=== PATIENT | female | born 1980 | race Caucasian/White ===

== ENCOUNTER → 2017-07-07 | Outpatient (CLI) | payer BC ==
[~2017-07-07] MED LIST: ATV/1 PO; BCPILLS PO; CETI10TA84 PO; CHOL100010 PO; HYOS1TAB PO; [UNRECOGNIZED DRUG - CODE] PO
== END | disposition home or self-care (01) ==
LOC: C.PAPS 09:52
PROVIDERS: ATTEND Physician Assistant
DX: Z01.419 Encounter for gynecological examination (general) (routine) without abnormal findings (principal)

== ENCOUNTER → 2017-10-16 | Outpatient (CLI) | payer BC, OTHER ==
--- NOTE | 2017-10-16 09:08 | DIAGNOSTIC IMAGING REPORT ---
ABDOMINAL ULTRASOUND, RIGHT UPPER QUADRANT HISTORY: Liver hemangioma1 year follow-up. COMPARISON: Abdominal ultrasound 09/07/2016. FINDINGS: Pancreas: The pancreas demonstrates a normal echotexture. Liver: A 16 x 15 x 14 mm hyperechoic focus within the liver is again noted. This is stable to slightly increased in size compared the prior studies. Gallbladder: No gallbladder wall thickening. No gallstones. CBD: 3 mm. Right kidney: No hydronephrosis. IMPRESSION: Stable to slight increase in size of the 16 x 15 x 14 mm hyperechoic focus within the liver. This likely represents a hemangioma. Electronically signed by: Kendall Griffin M.D. 10/16/2017 9:06 AM Dictated Date/Time: 10/16/2017 8:52 AM
== END | disposition home or self-care (01) ==
LOC: C.ULTRBC 07:59
PROVIDERS: ATTEND Internal Medicine Geriatric Medicine
DX: D18.03 Hemangioma of intra-abdominal structures (principal)

== ENCOUNTER → 2018-02-08 | Outpatient (CLI) | payer OTHER ==
--- NOTE | 2018-02-08 15:51 | DIAGNOSTIC IMAGING REPORT ---
CERVICAL WITHOUT CONTRAST CLINICAL HISTORY: 37 years-old Female presenting with M54.12 Cervical radiculopathy, neck pain radiating into the left shoulder for 6 weeks, left arm numbness intermittently, no history of trauma. TECHNIQUE: Multisequence, multiplanar MR imaging of the cervical spine was performed without the use of intravenous contrast. IV contrast: None. COMPARISON: None. FINDINGS: Localizer images: Unremarkable. Normal cervical lordosis. T1 hyperintense, T2 hyperintense lesion along the superior of C6 eccentrically along the right, possibly fat poor hemangioma or other benign etiology. Vertebral bodies otherwise maintain normal height, alignment, and bone marrow signal intensity. Mild disc desiccation without height loss at C3-4. No significant disc osteophyte complexes. Intervertebral discs otherwise preserved. No other significant degenerative change. No neural foraminal or spinal canal narrowing. Cervical spinal cord maintains normal morphology and signal intensity. Craniocervical junction normal. No epidural collection. No paraspinal muscular edema. IMPRESSION: Essentially normal cervical spine. Mild disc desiccation without height loss or significant degenerative change at C3-4. Electronically signed by: Renato Mesa M.D. 02/08/2018 3:50 PM Dictated Date/Time: 02/08/2018 3:46 PM
== END | disposition home or self-care (01) ==
LOC: C.MRIBC 14:23
PROVIDERS: ATTEND Internal Medicine Geriatric Medicine
DX: M54.12 Radiculopathy, cervical region (principal)